=== PATIENT | female | born 1955 ===

== ENCOUNTER 2020-11-18 05:49 | Day surgery (SDC) | payer OTHER ==
[~2020-11-18 05:49] MED LIST: ADVIL200 M1 PO; D3 + K2 DOTS 11 EACH PO; LOPRESSOR25 MG PO; RELPAX PO; VALIUM PO
[2020-11-18] MEDS ORDERED: DICLOFENAC POTA50 MG PO (14:21)
== END 2020-11-18 17:10 | disposition home or self-care (01) ==
LOC: CIR.AMB 05:49
PROVIDERS: ATTEND Obstetrics & Gynecology
DX: D25.0 Submucous leiomyoma of uterus (principal); Z20.822 Contact with and (suspected) exposure to COVID-19